=== PATIENT | female | born 1975 | race Caucasian/White ===

== ENCOUNTER 2018-02-17 19:52 | Emergency (ER) | payer OTHER ==
[~2018-02-17] VITALS: Ht 175.3 cm; Wt 73.5 kg
[~2018-02-17 19:52] MED LIST: IRON1TAB4 PO; PERCOCET 5/3251 TAB PO
[2018-02-18] MEDS ORDERED: PROVERA2.5 MG PO (00:57)
== END 2018-02-18 01:11 | disposition home or self-care (01) ==
LOC: ER 19:52
DX: N83.291 Other ovarian cyst, right side (principal); R10.2 Pelvic and perineal pain

== ENCOUNTER 2022-11-10 11:45 | Emergency (ER) | payer OTHER ==
[~2022-11-10] VITALS: Ht 175.3 cm; Wt 73.9 kg
[~2022-11-10 11:45] MED LIST changes: +PROVERA2.5 MG PO
== END 2022-11-10 15:20 | disposition home or self-care (01) ==
LOC: ER 11:45
DX: N92.6 Irregular menstruation, unspecified (principal); N94.6 Dysmenorrhea, unspecified; Z88.8 Allergy status to other drugs, medicaments and biological substances